=== PATIENT | male | born 1960 | race Caucasian/White ===

== ENCOUNTER 2019-12-29 09:54 | Emergency (ER) | payer BC ==
[~2019-12-29] VITALS: Ht 175.3 cm; Wt 65.9 kg
[~2019-12-29 09:54] MED LIST: IBUP-1984 PO
[2019-12-29] MEDS ORDERED: ondansetron/PF 4mg/2ml inj IV ONE (10:00)
[2019-12-29] MEDS ORDERED: ketorolac trometh. 30mg/ml inj. IV ONE (10:00)
[2019-12-29] MEDS ORDERED: morphine 4 MG/ML inj SYRINge IV ONE ×2 (10:00→11:45)
[2019-12-29] MEDS ORDERED: normal saline 1000ML IV soln IVB ONE (10:00)
[2019-12-29] MEDS ORDERED: tamsulosin 0.4mg capsule PO SCH (10:27)
[2019-12-29 10:32] LABS: BASOPHILS % (AUTO) 0.2 % (0-1); EOSINOPHILS % (AUTO) 0.3 % (0-6); HEMATOCRIT 45.5 % (42.0-52.0); HEMOGLOBIN 15.5 g/dl (14.0-17.9); LYMPHOCYTES # (AUTO) 1.7 X10'3 (1.1-4.8); LYMPHOCYTES % (AUTO) 26.4 % (21-51); MEAN CORPUSCULAR HGB CONC 34.1 g/dL (33.0-36.5); MEAN CORPUSCULAR VOLUME 90.9 FL (78-98); MEAN PLATELET VOLUME 9.1 FL (7.4-10.4); MONOCYTES # (AUTO) 0.4 X10'3 (0-0.9); MONOCYTES % (AUTO) 6.8 % (2-12); NEUTROPHILS # (AUTO) 4.3 X10'3 (1.8-7.7); NEUTROPHILS % (AUTO) 66.3 % (42-75); PLATELET COUNT 229 X10'3 (140-440); RED BLOOD COUNT 5.01 X10'6 (4.70-6.10); RED CELL DISTRIBUTION WIDTH 12.9 % (11.5-14.5); WHITE BLOOD COUNT 6.5 X10'3 (4.5-11.0)
[2019-12-29 10:41] LABS: ALANINE AMINOTRANSFERASE 15 U/L (12-78); ALBUMIN 4.1 G/DL (3.4-5.0); ALBUMIN/GLOBULIN RATIO 1.1 (1.1-1.5); ALKALINE PHOSPHATASE 66 IU/L (46-116); ANION GAP 10 (8-16); ASPARTATE AMINO TRANSFERASE 21 U/L (10-37); BILIRUBIN,TOTAL 0.4 MG/DL (0.1-1.0); BLOOD UREA NITROGEN 25 MG/DL (7-18); BUN/CREATININE RATIO 27.2 (5.4-32.0); CALCIUM 10.1 MG/DL (8.5-10.1); CHLORIDE 107 MMOL/L (99-107); CREATININE 0.92 MG/DL (0.60-1.10); GLUCOSE 102 MG/DL (70-104); POTASSIUM 4.6 MMOL/L (3.5-5.1); SODIUM 144 MMOL/L (135-145); TOTAL CARBON DIOXIDE 27.3 MMOL/L (24-32); TOTAL PROTEIN 7.9 G/DL (6.4-8.2); eGFR 84 ML/MIN
[2019-12-29 11:20] LABS: CLARITY,URINE CLEAR (Clear); COLOR,URINE YELLOW (Yellow); GLUCOSE, URINE NEGATIVE (Neg); KETONES,URINE NEGATIVE (Neg); LEUKOCYTE ESTERASE ,URINE NEGATIVE (Neg); NITRITES, URINE NEGATIVE (Neg); OCCULT BLOOD,URINE MODERATE (Neg); PH,URINE 7.5 (4.8-8.0); PROTEIN,URINE NEGATIVE (Neg); UROBILINOGEN,URINE 0.2 E.U/dL (0.2-1.0)
[2019-12-29 11:23] LABS: UA COLLECTION TYPE VOIDED
[2019-12-29 11:28] LABS: MUCUS STRANDS MODERATE /LPF (Neg); SQUAMOUS EPITHELIAL CELL,UR FEW /LPF (FEW)
[2019-12-29 11:29] LABS: BACTERIA,URINE 1+ /HPF (Neg); WBC,URINE 0-4 /HPF (0-4)
[2019-12-29 11:30] LABS: RBC,URINE 20-50 /HPF (0-2)
[2019-12-29] MEDS ORDERED: FLO0.4C PO (11:48)
[2019-12-29] MEDS ORDERED: KETO10TA2 PO (11:48)
[2019-12-29] MEDS ORDERED: HYDR-4383 PO (11:48)
[2019-12-29] MEDS ORDERED: ONDA4TAB6 PO (11:48)
[2019-12-29] MEDS ORDERED: morphine 4 MG/ML inj SYRINge IM ONE (12:40)
[2019-12-29 12:46] VITALS: BP 130/70
== END 2019-12-29 13:10 | disposition home or self-care (01) ==
LOC: ER 09:54
DX: N23 Unspecified renal colic (principal); Z87.442 Personal history of urinary calculi; Z72.89 Other problems related to lifestyle; Z79.899 Other long term (current) drug therapy
CPT/HCPCS: 36415; 76775; 80053; 81001; 85025; 96372; 96374; 96375; 96376; 99284; J1885; J2270; J2405; J7030